=== PATIENT | male | born 1970 | race Caucasian/White ===

== ENCOUNTER 2018-11-14 18:49 | Emergency (ER) | payer SELFPAY ==
[~2018-11-14] VITALS: Ht 167.6 cm; Wt 81.8 kg
[2018-11-14 18:55] VITALS: BP 141/78; PULSE 84; RESP 18; Ht 167.6 cm; Wt 81.8 kg
[2018-11-14] MEDS ORDERED: LIDOCAINE 1% (MDV) 10 ML INJ INJ STA (19:21)
[2018-11-14] MEDS ORDERED: HYDROCODONE/APAP (5/325) TAB PO ONE (19:30)
[2018-11-14] MEDS ORDERED: DIPHTH/TET/ACEL PERTUSS (ADULT) 0.5 ML VIAL IM* ONE (19:30)
[2018-11-14] MEDS ORDERED: LIDOCAINE 1% (MDV) 20 ML INJ INJ STA (19:34)
[2018-11-14] MEDS ORDERED: CEFAZOLIN 1 GM INJ IM ONE (20:30)
--- NOTE | 2018-11-14 20:36 | ERD ---
ER Documentation Chief Complaint Chief Complaint LEFT 2ND DIGIT PARTIAL AMPUTATION VS LAC WHEN USING SAW HPI Is a right-hand dominant 48-year-old male who presents with laceration to the le ft second finger that was sustained today by accident with a electric saw. He has 10 out of 10 pain at the site. No numbness or tingling or loss of range of motion. Denies possibility of retained foreign body. Unsure of last tetanus vaccination. ROS All systems reviewed and are negative except as per history of present illness. Allergies Allergies: Coded Allergies: No Known Allergy (Unverified , 11/14/18) PMhx/Soc Medical and Surgical Hx: pt denies Surgical Hx Hx Miscellaneous Medical Probl: Yes (DM) Hx Alcohol Use: No Hx Substance Use: No Hx Tobacco Use: No Smoking Status: Never smoker FmHx Family History: No diabetes Physical Exam Vitals Vital Signs Date Temp Pulse Resp B/P (MAP) Pulse Ox O2 O2 Flow FiO2 Time Delivery Rate 11/14/18 97.8 84 18 141/78 98 18:55 (99) Physical Exam Const: No acute distress Head: Atraumatic Eyes: Normal Conjunctiva ENT: Normal External Ears, Nose and Mouth. Neck: Full range of motion. No meningismus. Resp: Clear to auscultation bilaterally Cardio: Regular rate and rhythm, no murmurs Hand -left Skin: Second finger laceration distal tip spiraling around the radial aspect of the distal finger approximately 2-3 cm in length Compartments: Soft Sensation: Intact shoulder/pinky/middle finger/thumb web space Bones: Tenderness to palpation distal finger second digit Snuffbox: Nontender Joints: No effusion Wrist: Flex/Ext: Normal Uln/Radial deviation: Normal Pron/Supination Normal Finger: Flex/Ext: Normal Add/abd: Normal Thumb: Flex/Ext: Normal Opposition: Normal Thumbs up: Normal Results 24 hrs Current Medications Medications Dose Sig/Timbo Start Time Status Last (Trade) Ordered Route PRN Stop Time Admin Dose Reason Admin 1 tab ONCE ONCE 11/14/18 DC 11/14/18 Acetaminophen PO 19:30 19:30 / 11/14/18 19:31 Hydrocodone Bitart ([place] (5/325)) Diphtheria/ 0.5 ml ONCE ONCE 11/14/18 DC 11/14/18 Tetanus/Acell IM* 19:30 19:31 Pertussis 11/14/18 19:31 (Adacel) Lidocaine 10 ml ONCE STAT 11/14/18 DC HCl INJ 19:21 (Lidocaine 11/14/18 19:22 1% (Mdv) 10 ml) Lidocaine 10 ml ONCE STAT 11/14/18 DC (Xylocaine INJ 19:34 1% (Mdv) 20 11/14/18 19:35 ml) Cefazolin 1 gm ONCE ONCE 11/14/18 DC Sodium IM 20:30 (Ancef) 11/14/18 20:31 Procedures/MDM 48-year-old male is here for. He was given a tetanus vaccination. X-ray of his finger shows a comminuted displaced second distal phalangeal fracture with missing some fragment fractures and overlying soft tissue swelling. Reviewed these findings with Dr. Jang who recommended loosely sewing up the laceration which I did. Patient was given Ancef. He was given pain medication prescription for pain medication, Keflex. Copies of x-rays. He is to follow-up with [facility] tomorrow. Placed in a metal finger splint for immobilization. Patient counseled regarding my diagnostic impression and care plan. Prior to discharge all questions answered. Pt agrees with treatment plan and understands strict return precautions. Pt is instructed to follow up with primary care provider within 24-48 hours. Precautionary instructions provided including instructions to return to the ER if not improving or for any worsening or changing symptoms or concerns. Departure Diagnosis: Primary Impression: Open fracture Condition: DORIS Cleary PA-C Nov 14, 2018 20:36
[2018-11-14] MEDS ORDERED: IBUP800T48 PO (20:38)
[2018-11-14] MEDS ORDERED: CEPH-443 PO (20:38)
[2018-11-14] MEDS ORDERED: HYDR-4011 PO (20:38)
== END 2018-11-14 21:00 | disposition home or self-care (01) ==
LOC: FTE 18:49
DX: S61.211A Laceration without foreign body of left index finger without damage to nail, initial encounter (principal); S62.601A Fracture of unspecified phalanx of left index finger, initial encounter for closed fracture; E11.9 Type 2 diabetes mellitus without complications; W31.1XXA Contact with metalworking machines, initial encounter; Y92.9 Unspecified place or not applicable; Z23 Encounter for immunization
CPT/HCPCS: 12002; 73140; 90715; J0690; 90471; 96372